=== PATIENT | male | born 1990 | race Caucasian/White ===

== ENCOUNTER 2018-09-21 12:24 | Emergency (ER) | payer BC ==
[2018-09-21 13:05] VITALS: BP 119/65; PULSE 97; TEMP 98.8; BMI 29.2
--- NOTE | 2018-09-21 14:06 | PDOC ---
History of Present Illness - General Chief Complaint: Injury Stated Complaint: INJURY, LT ANKLE Time Seen by Provider: 09/21/18 13:50 - History of Present Illness Initial Comments: 09/21/18 14:05 28-year-old male without comorbidities presents for evaluation of left ankle pain. He describes an inversion type injury while running today. He states he fell here did not hit his head no nausea vomiting or visual changes. He points to the lateral aspect of the left ankle as the area of his discomfort area he does have a prior left ankle sprain Past History - Past Medical History Allergies/Adverse Reactions: Allergies Allergy/AdvReac Type Severity Reaction Status Date / Time No Known Allergies Allergy Verified 09/21/18 13:03 Home Medications: Ambulatory Orders NK [No Known Home Medication] 09/21/18 COPD: No - Suicide/Smoking/Psychosocial Hx Smoking History: Never smoked Hx Alcohol Use: No Drug/Substance Use Hx: No Review of Systems - Review of Systems Musculoskeletal: Yes: Joint Pain *Physical Exam - Vital Signs Last Vital Signs Temp Pulse Resp BP Pulse Ox 98.8 F 97 H 18 119/65 99 09/21/18 13:03 09/21/18 13:03 09/21/18 13:03 09/21/18 13:03 09/21/18 13:03 - Physical Exam Comments: 09/21/18 14:05 Left ankle skin color and temperature are normal range of motion is slightly limited. There is swelling about the lateral aspect left ankle. No tenderness about the knee proximal fibula or along its distal course. No tenderness about the medial malleolus fifth metatarsal or navicular. There is tenderness about the lateral malleolus as well as the ATFL. He has a 1+ anterior drawer as compared to the contralateral side. He has no gross sensorimotor deficits she's neurovascularly intact. ED Treatment Course - RADIOLOGY Radiology Studies Ordered: Category Date Time Status ANKLE-LEFT [RAD] Stat Radiology 09/21/18 13:55 Taken Medical Decision Making - Medical Decision Making 09/21/18 14:07 Weight-bear as tolerated with use of Aircast and crutches. X-rays today are negative for acute fracture follow-up with orthopedics. Tylenol Motrin for pain. *DC/Admit/Observation/Transfer Diagnosis at time of Disposition: Left ankle sprain - Discharge Dispostion Disposition: HOME Condition at time of disposition: Stable Decision to Admit order: No - Referrals Referrals: Harvey Suazo MD [Staff Physician] - - Patient Instructions Printed Discharge Instructions: Ankle Sprain, DI for Ankle Sprain Additional Instructions: He may weight-bear as tolerated with use of the Aircast and crutches. He may remove the Aircast for hygiene and sleep. Follow-up with orthopedic surgery in 2 -3 days for further evaluation and treatment options. Return to the emergency room should symptoms worsen or go unresolved. Tylenol and Motrin for pain and swelling as directed. - Post Discharge Activity
== END 2018-09-21 14:13 | disposition home or self-care (01) ==
LOC: JERFT 12:24
PROC: 2W3RX1Z Immobilization of Left Lower Leg using Splint (ICD-10-PCS; principal; 2018-09-21)
DX: S93.402A Sprain of unspecified ligament of left ankle, initial encounter (principal); X50.1XXA Overexertion from prolonged static or awkward postures, initial encounter; Y93.02 Activity, running; Y92.89 Other specified places as the place of occurrence of the external cause; Y99.8 Other external cause status
CPT/HCPCS: 73610-TC-LT-FY; 99281-25